=== PATIENT | male | born 1935 | race Caucasian/White ===

== ENCOUNTER → 2017-12-13 | Outpatient (CLI) | payer MEDICARE ==
[~2017-12-13] MED LIST: ASCO-504 PO; ASPI81TA94 PO; DIPH-638 PO; DOCU-416 PO; FINA5TAB67 PO; FLUT9.9S; GLUC-198 PO; HYDR-317 PO; LUTE20CA11 PO; MIRA50TA PO; NAPR220C12 PO; OMEG-11 PO; OMEP10CA40 PO; OXYB15TA17 PO; PHEN200T32 PO; PNEU0.5D3 IM; POLY17PO25 PO; SIMV-42 PO; SIMV-49 PO; SIMV-54 PO; SOLI10TA8 PO; TAMS0.4C70 PO; VITA-200 PO; VITA1CAP46 PO
[2017-12-13 10:13] LABS: PLATELET COUNT, AUTOMATED 123 K/uL (150-450)
[2017-12-13 10:36] LABS: LDL CHOLESTEROL 50 mg/dl
== END ==
LOC: LAB 09:58
PROVIDERS: ATTEND Emergency Medicine
DX: Z12.5 Encounter for screening for malignant neoplasm of prostate (principal); N40.0 Benign prostatic hyperplasia without lower urinary tract symptoms; E78.5 Hyperlipidemia, unspecified; E66.9 Obesity, unspecified; Z68.30 Body mass index [BMI] 30.0-30.9, adult
CPT/HCPCS: 36415; 85025; G0103; 82040; 82247; 82310; 82374; 82435; 82465; 82565; 82947; 83718; 84075; 84132; 84153; 84155; 84295; 84450; 84460; 84478; 84520

== ENCOUNTER → 2017-12-21 | Outpatient (CLI) | payer MEDICARE ==
[~2017-12-21] MED LIST changes: +DIPH0.5D12 IM; +NITR0.4T3 SL
== END ==
LOC: LAB 09:01
PROVIDERS: ATTEND Emergency Medicine
DX: R14.0 Abdominal distension (gaseous) (principal)
CPT/HCPCS: 87338

== ENCOUNTER → 2017-12-27 | Outpatient (CLI) | payer MEDICARE ==
[~2017-12-27] MED LIST changes: +IOPAMIDOL 76% 75 ML INFUS BTL 75 ML ONE
--- NOTE | 2017-12-27 10:18 | RADIOLOGY IMAGING REPORT ---
FACILITY: [facility] PATIENT NAME: Jostin Navarro : 1935 MR: [id number] V: [id number] EXAM DATE: ORDERING PHYSICIAN: KEITH COWART TECHNOLOGIST: Location: [facility] Patient: Jostin Navarro : 1935 Visit/Account:[id number] Date of Sevice: 12/27/2017 CT ABDOMEN WITH IV CONTRAST CLINICAL INFORMATION: Abdomen distention, gas, upper abdomen pain TECHNIQUE: Axial CT images were obtained through the abdomen during injection of nonionic iodinated intravenous contrast. Reformatted coronal and sagittal images were also obtained. Dose Lowering Tech nique One of the following dose optimization techniques was utilized in the performance of this exam: Autom ated exposure control; adjustment of the mA and/or kV according to the patient's size; or use of an i terative reconstruction technique. Specific details can be referenced in the facility's radiology C T exam operational policy. CONTRAST: 75 mL of Isovue 370 IV contrast. COMPARISON: March 18, 2015. FINDINGS: Lower lung wheeler: There Is a 2 mm subpleural nodule posterior aspect right lower lobe that has remai elena stable. Liver: No focal parenchymal abnormality of the liver. Biliary: Bilobed cyst medial segment left lobe of the liver again seen Pancreas: Pancreatic head is slightly heterogeneous although discrete mass is not seen Spleen: Normal appearance. Adrenal glands: Unremarkable. Kidneys / retroperitoneum: No evidence of nephrolithiasis or hydronephrosis Bowel / peritoneum / mesenteries: The visualized small and large bowel appear unremarkable. Lymph node assessment: No pathologic adenopathy identified. Vessels: Extensive vascular calcifications in the abdominal aorta and branch vessels atherosclerotic calcification seen throughout a nonaneurysmal abdominal aorta and branches. Musculoskeletal / Body wall: Spondylotic changes of the lumbar spine IMPRESSION: 1. Pancreatic head is slightly heterogeneous although discrete mass is not seen. If pancreatic path ology is of clinical concern MR or correlation with lab values may be helpful Additional chronic findings as described Report Dictated By: Sis Colon MD at 12/27/2017 9:11 AM Report E-Signed By: Sis Cloon MD at 12/27/2017 10:13 AM WSN:REED
== END ==
LOC: CT 02:18
PROVIDERS: ATTEND Emergency Medicine
DX: R91.8 Other nonspecific abnormal finding of lung field (principal); K76.89 Other specified diseases of liver; I25.10 Atherosclerotic heart disease of native coronary artery without angina pectoris; M47.896 Other spondylosis, lumbar region
CPT/HCPCS: 74160; Q9967

== ENCOUNTER → 2018-01-05 | Outpatient (CLI) | payer MEDICARE ==
[~2018-01-05] MED LIST changes: +GADOBENATE 529MG/1ML 15ML VIAL IVP ONE; -IOPAMIDOL 76% 75 ML INFUS BTL 75 ML ONE; +NS(*) 0.9% 10 ML VIAL 40 ML ONE
--- NOTE | 2018-01-05 08:56 | RADIOLOGY IMAGING REPORT ---
FACILITY: [facility] [place] PATIENT NAME: Jostin Navarro : 1935 MR: [id number] V: [id number] EXAM DATE: ORDERING PHYSICIAN: KEITH COWART TECHNOLOGIST: Location: [facility] [place] Patient: Jostin Navarro : 1935 Visit/Account:[id number] Date of Sevice: 01/05/2018 Exam type: ORBITS FOREIGN BODY 1 VIEW History: Pre-MRI screening Comparison: None. Findings: No radiopaque metallic foreign bodies project over the orbits. Incidentally noted are surgical clips in the right-sided the neck and moderate spondylotic changes in the visualized portion of the cervic al spine IMPRESSION: 1. No radiopaque metallic foreign bodies project over the orbits Report Dictated By: Sis Colon MD at 01/05/2018 8:50 AM Report E-Signed By: Sis Colon MD at 01/05/2018 8:51 AM WSN:REED
--- NOTE | 2018-01-05 11:38 | RADIOLOGY IMAGING REPORT ---
FACILITY[place] [facility] [place]IENT NAME: Jostin Navarro : 1935 MR: [id number] V: [id number] EXAM DATE: ORDERING PHYSICIAN: KEITH COWART TECHNOLOGIST: Location: [facility] Patient: Jostin Navarro : 1935 Visit/Account:[id number] Date of Sevice: 01/05/2018 ABDOMEN MR W W/O CONTRAST HISTORY: Heterogeneous pancreas noted on CT of the abdomen ADDITIONAL HISTORY: None. TECHNIQUE: TECHNIQUE: Multiplanar multisequence magnetic resonance imaging of the abdomen with and without intravenous contrast. CONTRAST: 15 mL of MultiHance COMPARISON: CT abdomen December 27, 2017 FINDINGS: Visualized lung bases: Grossly unremarkable. Liver: Bilobed cyst medial segment left lobe of the liver again seen. There is a tiny 5 mm cyst infe rior medial right lobe the liver as well Gallbladder: Negative. Bile ducts: Nondistended and unremarkable. Spleen: Negative. Adrenal glands: Negative. Pancreas: The pancreas enhances homogeneously. There is no evidence of a pancreatic mass or pancreat ic duct dilatation. Heterogeneous appearance to the pancreatic head on the prior CT may have been re lated to volume averaging of the adjacent peripancreatic fat.. Kidneys: Negative. Vessels/spaces/nodes: Atherosclerotic changes in the abdominal aorta and branch vessels Visualized GI: Grossly unremarkable. Bones/soft tissues: Spondylotic changes of the lumbar spine IMPRESSION: Hepatic cysts The pancreas appears homogeneous with no demonstration of a mass or pancreatic duct dilatation. Hete rogeneous appearance to the pancreatic cancer on the prior CT may have been related to volume averagi ng of the adjacent peripancreatic fat. Atherosclerosis of the abdominal aorta and branch vessels Spondylotic changes of the lumbar spine Report Dictated By: Sis Colon MD at 01/05/2018 11:16 AM Report E-Signed By: Sis Colon MD at 01/05/2018 11:33 AM WSN:REED
== END ==
LOC: MRI 01:41
PROVIDERS: ATTEND Emergency Medicine
DX: K76.89 Other specified diseases of liver (principal); I70.0 Atherosclerosis of aorta; M47.894 Other spondylosis, thoracic region
CPT/HCPCS: 70030; 74183; A9577

== ENCOUNTER 2018-04-24 13:47 | Observation (INO) | payer MEDICARE ==
[~2018-04-24] VITALS: Ht 182.9 cm; Wt 103.0 kg
[~2018-04-24 13:47] MED LIST changes: -ASCO-182 PO; -ATOR40TA24 PO; -OMEP-137 PO; -ZINC50TA43 PO
[2018-04-24] MEDS ORDERED: NS(*) 0.9% 500 ML BAG 500 ML IV ONE (13:52)
--- NOTE | 2018-04-24 13:56 | ER Report ---
History and Physical Time Seen By MD: 13:51 HPI/ROS CHIEF COMPLAINT: Chest pain HISTORY OF PRESENT ILLNESS: This is an 82-year-old male presents to the emergency department via EMS for chest pain. Patient states that he is playing golf and developed some anterior chest pain from shoulder to shoulder. Patient went home and did take 3 nitroglycerin which did seem to relieve some of the discomfort. Proximally 5-10 minutes after taking the 3rd nitroglycerin he became lightheaded and dizzy had a near syncopal episode. Patient was given 324 mg of aspirin prior to arrival. Patient arrives pain-free at this time. Patient is alert and oriented, no diaphoresis no nausea or vomiting at this time. REVIEW OF SYSTEMS: Constitutional: No fever, no chills. Eyes: No discharge. ENT: No sore throat. Cardiovascular: As above. Respiratory: No cough, no shortness of breath. Gastrointestinal: No abdominal pain, no vomiting. Genitourinary: No hematuria. Musculoskeletal: No back pain. Skin: No rashes. Neurological: As above. Allergies: Coded Allergies: No Known Allergies (Verified Allergy, Unknown, 11/19/09) Home Meds Active Scripts Nitroglycerin (NITROGLYCERIN) 0.4 Mg Tab.subl, 0.4 MG SL Q5MIN, #10 TAB Take at onset of chest pain. Can repeat every 5 mins for a total of three. Prov:KEITH COWART MD 12/20/17 Reported Medications Zinc Gluconate (ZINC) 50 Mg Tablet, 50 MG PO DAILY 04/24/18 Ascorbic Acid (VITAMIN C) 500 Mg Tablet, 500 MG PO DAILY, TAB 04/24/18 Omeprazole (OMEPRAZOLE) 20 Mg Tablet.dr, 20 MG PO QDAY, TAB 04/24/18 Atorvastatin Calcium (LIPITOR) 40 Mg Tablet, 1 TAB PO QDAY, TAB 04/24/18 Oxybutynin Chloride (DITROPAN XL) 15 Mg Tab.er.24, 1 TAB PO QDAY, TAB 12/13/16 Finasteride (FINASTERIDE) 5 Mg Tablet, 1 TAB PO QDAY 04/29/15 Polyethylene Glycol 3350 (MIRALAX) 17 Gm Powd.pack, 17 GM PO QDAY Y for CONSTIPATION 03/14/15 Glucosa Santiago 2KCL/Chondroitin Santiago (GLUCOSAMINE & CHONDROITIN CAP) 1 Each Capsule, 1 EACH PO DAILY, CAPSULE 03/14/15 Vitamin B Complex (VITAMIN B COMPLEX) 1 Each Capsule, 1 EACH PO DAILY, CAPSULE 03/14/15 Vitamin E Acetate (VITAMIN E) 400 Unit Capsule, 400 UNIT PO DAILY, CAPSULE 03/14/15 [place]-3 Fatty Acids/Fish Oil (FISH OIL 1,000 MG CAPSULE) 1 Each Capsule, 1 EACH PO BID, CAPSULE 03/14/15 Tamsulosin Hcl (TAMSULOSIN HCL) 0.4 Mg Cap.er.24h, 0.4 MG PO DAILY 03/14/15 Aspirin (ASPIRIN) 81 Mg Tab.chew, 81 MG PO QDAY, TAB.CHEW 03/14/15 Lutein (LUTEIN) 20 Mg Capsule, 20 MG PO DAILY, CAPSULE 03/14/15 Discontinued Reported Medications Omeprazole (OMEPRAZOLE) 10 Mg Capsule.dr, 10 MG PO QDAY, CAP 03/14/15 Discontinued Scripts Simvastatin (SIMVASTATIN) 40 Mg Tablet, 40 MG PO HS, #90 TAB 3 Refills Prov:KEITH COWART MD 01/07/16 Fluticasone Propionate (Flonase Allergy Relief) 9.9 Ml [place].susp, 2 EA NA PRN, #3 BOTTLE 4 Refills Prov:KEITH COWART MD 12/10/15 Pneumoc 13-Patricia Conj-Dip Crm/Pf (PREVNAR 13 SYRINGE) 0.5 Ml Disp.syrin, 0.5 ML IM ONCE, #1 SYR 0 Refills Prov:BRAYAN BERTRAND APRN MICROWAVE ENGINEER-C 04/29/15 Past Medical/Surgical History The patient has a past medical and surgical history of coronary artery disease, angiogram, irregular heartbeat, skipped heartbeats, hypercholesterolemia, history of smoking, colonoscopy, GERD, urinary frequency, incontinence, enlarged prostate, 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 Reviewed Nurses Notes: Yes Hx Smoking: Yes (SMOKED 1 PPD FOR 24 YEARS) Smoking Status: Former Smoker Exposure to Second Hand Smoke?: No Hx Alcohol Use: Yes Constitutional Vital Sign - Last 24 Hours 04/24/18 04/24/18 04/24/18 04/24/18 13:47 13:51 13:52 14:00 Temp 97.8 Pulse ??? 84 Resp 18 B/P (MAP) 101/34 101/34 (56) 112/55 (74) Pulse Ox 94 O2 Delivery Room Air 04/24/18 04/24/18 04/24/18 04/24/18 14:17 14:30 14:47 15:00 Pulse 66 60 Resp 18 18 B/P (MAP) 106/49 (68) 109/48 (68) Pulse Ox 93 92 04/24/18 04/24/18 04/24/18 04/24/18 15:17 15:30 15:30 16:00 Pulse 62 59 68 Resp 8 13 13 B/P (MAP) 114/52 (72) 114/52 (72) 99/50 (66) Pulse Ox 93 94 92 04/24/18 04/24/18 04/24/18 04/24/18 16:30 17:00 17:00 17:30 Pulse 60 60 60 59 Resp 16 13 13 7 B/P (MAP) 112/52 (72) 112/55 (74) 112/55 (74) 121/53 (75) Pulse Ox 95 92 92 93 Physical Exam General Appearance: The patient is alert, has no immediate need for airway protection and no signs of toxicity. Eyes: Pupils equal and round no pallor or injection. ENT, Mouth: Mucous membranes are moist. Respiratory: There are no retractions, lungs are clear to auscultation. Cardiovascular: Irregular rate and rhythm. No murmurs, clicks or rubs. Cardiovascular reevaluation: Converted, regular rate and rhythm. No murmurs, clicks or rubs. Gastrointestinal: Abdomen is soft and non tender, no masses, bowel sounds normal. Neurological: Alert and oriented 4. Moving all extremities. Following all commands. No focal neurologic deficits. Skin: Warm and dry, no rashes. Musculoskeletal: Neck is supple non tender. Extremities are nontender, nonswollen and have full range of motion. DIFFERENTIAL DIAGNOSIS: After history and physical exam differential diagnosis was considered for chest pain including but not limited to myocardial ischemia, pericarditis pulmonary embolus, chest wall pain, pleural inflammation and pulmonary infectious causes. Medical Decision Making Data Points Result Diagram: 04/24/18 1352 04/24/18 1352 Laboratory Hematology Test 04/24/18 13:52 7/30/18 16:28 Red Blood Count 4.74 M/uL (4.00-5.60) Mean Corpuscular Volume 92.8 fL (80.0-96.0) Mean Corpuscular Hemoglobin 32.7 pg (26.0-33.0) Mean Corpuscular Hemoglobin Concent 35.2 g/dL (32.0-36.0) Red Cell Distribution Width 14.1 % (11.5-14.5) Mean Platelet Volume 8.9 fL (7.2-11.1) Neutrophils (%) (Auto) 57.4 % (39.4-72.5) Lymphocytes (%) (Auto) 27.9 % (17.6-49.6) Monocytes (%) (Auto) 11.8 % (4.1-12.4) Eosinophils (%) (Auto) 2.2 % (0.4-6.7) Basophils (%) (Auto) 0.7 % (0.3-1.4) Nucleated RBC Relative Count (auto) 0.1 /100WBC Neutrophils # (Auto) 4.5 K/uL (2.0-7.4) Lymphocytes # (Auto) 2.2 K/uL (1.3-3.6) Monocytes # (Auto) 0.9 K/uL (0.3-1.0) Eosinophils # (Auto) 0.2 K/uL (0.0-0.5) Basophils # (Auto) 0.1 K/uL (0.0-0.1) Nucleated RBC Absolute Count (auto) 0.00 K/uL D-Dimer Quantitative (PE/DVT) 0.34 ug/ml (0-0.50) Sodium Level 142 mmol/L (137-145) Potassium Level 3.9 mmol/L (3.5-5.0) Chloride Level 104 mmol/L (98-107) Carbon Dioxide Level 27 mmol/L (22-30) Blood Urea Nitrogen 17 mg/dl (9-21) Creatinine 0.90 mg/dl (0.66-1.25) Glomerular Filtration Rate Calc > 60.0 Random Glucose 127 mg/dl (75-110) Calcium Level 9.3 mg/dl (8.4-10.2) Magnesium Level 2.1 mg/dl (1.7-2.2) Total Bilirubin 0.7 mg/dl (0.2-1.3) Aspartate Amino Transf (AST/SGOT) 27 U/L (0-35) Alanine Aminotransferase (ALT/SGPT) 32 U/L (0-56) Alkaline Phosphatase 80 U/L (0-126) Total Protein 7.2 g/dl (6.3-8.2) Albumin 4.3 g/dl (3.5-5.0) Troponin I < 0.012 ng/ml Chemistry Test 04/24/18 13:52 04/24/18 16:28 White Blood Count 7.8 k/uL (4.5-11.0) Red Blood Count 4.74 M/uL (4.00-5.60) Hemoglobin 15.5 g/dL (14.0-18.0) Hematocrit 44.0 % (42.0-52.0) Mean Corpuscular Volume 92.8 fL (80.0-96.0) Mean Corpuscular Hemoglobin 32.7 pg (26.0-33.0) Mean Corpuscular Hemoglobin Concent 35.2 g/dL (32.0-36.0) Red Cell Distribution Width 14.1 % (11.5-14.5) Platelet Count 126 K/uL (150-450) Mean Platelet Volume 8.9 fL (7.2-11.1) Neutrophils (%) (Auto) 57.4 % (39.4-72.5) Lymphocytes (%) (Auto) 27.9 % (17.6-49.6) Monocytes (%) (Auto) 11.8 % (4.1-12.4) Eosinophils (%) (Auto) 2.2 % (0.4-6.7) Basophils (%) (Auto) 0.7 % (0.3-1.4) Nucleated RBC Relative Count (auto) 0.1 /100WBC Neutrophils # (Auto) 4.5 K/uL (2.0-7.4) Lymphocytes # (Auto) 2.2 K/uL (1.3-3.6) Monocytes # (Auto) 0.9 K/uL (0.3-1.0) Eosinophils # (Auto) 0.2 K/uL (0.0-0.5) Basophils # (Auto) 0.1 K/uL (0.0-0.1) Nucleated RBC Absolute Count (auto) 0.00 K/uL D-Dimer Quantitative (PE/DVT) 0.34 ug/ml (0-0.50) Glomerular Filtration Rate Calc > 60.0 Calcium Level 9.3 mg/dl (8.4-10.2) Magnesium Level 2.1 mg/dl (1.7-2.2) Total Bilirubin 0.7 mg/dl (0.2-1.3) Aspartate Amino Transf (AST/SGOT) 27 U/L (0-35) Alanine Aminotransferase (ALT/SGPT) 32 U/L (0-56) Alkaline Phosphatase 80 U/L (0-126) Total Protein 7.2 g/dl (6.3-8.2) Albumin 4.3 g/dl (3.5-5.0) Troponin I < 0.012 ng/ml Coagulation Test 04/24/18 13:52 D-Dimer Quantitative (PE/DVT) 0.34 ug/ml EKG/Imaging EKG Interpretation 12 lead EKG: Time of EKG 1354. Rhythm: Atrial fibrillation, rate of 82 bpm. [place] Heart: normal QRS: normal ST segments: Slight depression in V2 V3 and V4 V5 V6, similar to the previous stress test. 12 lead EKG: Repeat EKG 1418. Rhythm: Normal sinus rhythm, ventricular rate 77 bpm. [place] Heart: normal QRS: normal ST segments: No ST depression or elevation identified, improvement of the depression in leads V2, V3, V4, V5 and V6. Imaging Location: [facility] [place] Patient: Jostin Navarro : 1935 Visit/Account:[id number] Date of Sevice: 04/24/2018 EXAMINATION: Chest radiographs 2 views HISTORY: Chest pain. COMPARISON: 03/17/2015. FINDINGS: PA and lateral views of the chest are submitted. Lines/tubes: None. Lungs/pleura: No focal consolidation or pleural effusion. Heart: Negative. Mediastinum: Atherosclerotic calcifications of the aorta. Bony structures/body wall: Mild degenerative changes of the thoracic spine with small bridging anterior osteophytes. IMPRESSION: No radiographic evidence of acute cardiopulmonary disease. Report Dictated By: Ness Salazar MD at 04/24/2018 3:34 PM Report E-Signed By: Ness Salazar MD at 04/24/2018 3:35 PM WSN:[id number] ED Course/Re-evaluation Clinical Indication for ER IV: Hydration, IV Access ED Course The patient was admitted to room. A history of physical were obtained. Differential diagnoses were considered. An IV was started via EMS. A CBC, CMP, troponin and d-dimer were obtained. Lab studies unremarkable. Negative troponin , negative d-dimer. 1st EKG upon arrival showing atrial fibrillation with a rate of [address] depression in V2, V3, V4, V5 and minimally and V6. Proximal 2020 minutes later I noted that the patient's rhythm changed repeat EKG showing a normal sinus rhythm, ventricular rate [address] depression in the the leads no longer present. Repeat troponin was negative. Two-view chest x-ray was negative for any acute cardiopulmonary process. I did review these results with the patient and the family. With the near syncopal episode that the patient had , which was likely from the nitroglycerin, the chest pain and the new onset A. fib we discussed the possibility of an admission to the hospital. With the concern of recurrent chest pain and recurrent atrial fibrillation, the patient and family were agreeable to admission to the hospital. Dr. Early has agreed to admit the patient for observation to the medical surgical unit. At the time of admission the patient had no other questions or concerns, and no sinus rhythm and pain-free. 04/24/2018 3:12:39 pm I did review the laboratory studies with patient and his . Did tell him that the only thing waiting on now is the chest x-ray. Patient remains pain-free, no lightheadedness or dizziness, remains in a normal sinus rhythm with a rate of 60 bpm. 04/24/2018 4:23:09 pm I did review the negative chest x-ray with patient and his family. I did tell them that I do like to repeat the troponin and then talk to the hospitalist regarding his case. Patient and family are in agreement with this. Patient remains in a normal sinus rhythm. He remains pain-free. 04/24/2018 5:36:51 pm the repeat troponin was negative. I did speak with Dr. Early regarding the patient's case he is willing to admit the patient into the hospitalist services. I discussed this with the patient and the family and the patient is willing to come in for new onset atrial fibrillation and chest pain. Decision to Disposition Date: Apr 24, 2018 Decision to Disposition Time: 17:36 Depart Departure Latest Vital Signs Vital Signs Date Time Temp Pulse Resp B/P (MAP) Pulse Ox O2 Delivery O2 Flow Rate FiO2 04/24/18 17:30 59 7 121/53 (75) 93 04/24/18 13:51 97.8 Room Air Impression: Primary Impression: Atrial fibrillation Additional Impressions: Chest pain Near syncope Condition: Improved Disposition: Admitted from ER Referrals: KEITH COWART MD (PCP) Problem Qualifiers Primary Impression: Atrial fibrillation Atrial fibrillation type: unspecified Qualified Codes: I48.91 - Unspecified atrial fibrillation Additional Impressions: Chest pain Chest pain type: unspecified Qualified Codes: R07.9 - Chest pain, unspecified ELVIRA ACKERMAN MICROWAVE ENGINEER- Apr 24, 2018 13:56
[2018-04-24 14:00] LABS: PLATELET COUNT, AUTOMATED 126 K/uL (150-450)
--- NOTE | 2018-04-24 14:27 | EKG ---
FACILITY: [facility] PATIENT NAME: KURT ZAVALA : [id number] MR: [id number] V: [id number] EXAM DATE: ORDERING PHYSICIAN: ELVIRA ACKERMAN TECHNOLOGIST: LAQUITA Test Reason : REPEAT EKG Blood Pressure : / mmHG Vent. Rate : 077 BPM Atrial Rate : 077 BPM P-R Int : 184 ms QRS Dur : 094 ms QT Int : 414 ms P-R-T Axes : 049 037 025 degrees QTc Int : 468 ms Normal sinus rhythm Low voltage QRS RSR' or QR pattern in V1 suggests right ventricular conduction delay Nonspecific ST and T wave abnormality Prolonged QT Abnormal ECG When compared with ECG of 24-APR-2018 13:54, Sinus rhythm has replaced Atrial fibrillation Nonspecific T wave abnormality now evident in Anterior leads Confirmed by MILAGROS BALDERAS ([id number]) on 04/24/2018 5:32:15 PM Referred By: VANDANA Confirmed By:MILAGROS BALDERAS
--- NOTE | 2018-04-24 14:30 | EKG ---
FACILITY: [facility] PATIENT NAME: KURT ZAVALA : [id number] MR: [id number] V: [id number] EXAM DATE: ORDERING PHYSICIAN: ELVIRA ACKERMAN TECHNOLOGIST: DIEUDONNE Test Reason : ER Blood Pressure : / mmHG Vent. Rate : 082 BPM Atrial Rate : 326 BPM P-R Int : 000 ms QRS Dur : 090 ms QT Int : 380 ms P-R-T Axes : 000 045 014 degrees QTc Int : 443 ms Atrial fibrillation Low voltage QRS RSR' or QR pattern in V1 suggests right ventricular conduction delay ST abnormality, possible digitalis effect Abnormal ECG No previous ECGs available Confirmed by MILAGROS BALDERAS ([id number]) on 04/24/2018 5:32:04 PM Referred By: Confirmed By:MILAGROS BALDERAS
--- NOTE | 2018-04-24 15:40 | RADIOLOGY IMAGING REPORT ---
FACILITY: [facility] [place] PATIENT NAME: Jostin Navarro : 1935 MR: [id number] V: [id number] EXAM DATE: ORDERING PHYSICIAN: ELVIRA ACKERMAN TECHNOLOGIST: Location: [facility] Patient: Jostin Navarro : 1935 Visit/Account:[id number] Date of Sevice: 04/24/2018 EXAMINATION: Chest radiographs 2 views HISTORY: Chest pain. COMPARISON: 03/17/2015. FINDINGS: PA and lateral views of the chest are submitted. Lines/tubes: None. Lungs/pleura: No focal consolidation or pleural effusion. Heart: Negative. Mediastinum: Atherosclerotic calcifications of the aorta. Bony structures/body wall: Mild degenerative changes of the thoracic spine with small bridging anter ior osteophytes. IMPRESSION: No radiographic evidence of acute cardiopulmonary disease. Report Dictated By: Ness Salazar MD at 04/24/2018 3:34 PM Report E-Signed By: Ness Salazar MD at 04/24/2018 3:35 PM WSN:[id number]
[2018-04-24 18:26] VITALS: BP 152/69
[2018-04-24] MEDS ORDERED: OMEP-137 PO (18:43)
[2018-04-24] MEDS ORDERED: ZINC50TA43 PO (18:43)
[2018-04-24] MEDS ORDERED: ASCO-182 PO (18:43)
[2018-04-24] MEDS ORDERED: ATOR40TA24 PO (18:43)
[2018-04-24] MEDS ORDERED: INFLUENZA VIRUS VAC 0.5 ML SYR IM ONLY ONE (18:55)
--- NOTE | 2018-04-24 19:09 | History & Physical ---
History of Present Illness Chief Complaint Chest pain History of Present Illness This patient presented to the emergency room complaining of chest pain. He developed chest pressure while playing golf, but it was not enough to force him to stop playing. He finished golfing and went to lunch and continued to feel the pressure. He then decided to take 3 doses of nitroglycerin to see if it would help. Shortly thereafter he suffered a syncopal episode. His noted that his blood pressure was in the 80 systolic range after this event. He does not recall that a similar episode has ever occurred in the past. History Problems: (1) H/O carotid endarterectomy (2) History of coronary angiogram (3) Nephrolithiasis Status: Chronic (4) Peripheral vascular disease Status: Chronic (5) BPH (benign prostatic hyperplasia) Status: Chronic (6) Hyperlipidemia Onset Date: 04/29/2015 Status: Chronic Home Meds Active Scripts Nitroglycerin (NITROGLYCERIN) 0.4 Mg Tab.subl, 0.4 MG SL Q5MIN, #10 TAB Take at onset of chest pain. Can repeat every 5 mins for a total of three. Prov:KEITH COWART MD 12/20/17 Reported Medications Zinc Gluconate (ZINC) 50 Mg Tablet, 50 MG PO DAILY 04/24/18 Ascorbic Acid (VITAMIN C) 500 Mg Tablet, 500 MG PO DAILY, TAB 04/24/18 Omeprazole (OMEPRAZOLE) 20 Mg Tablet.dr, 20 MG PO QDAY, TAB 04/24/18 Atorvastatin Calcium (LIPITOR) 40 Mg Tablet, 1 TAB PO QDAY, TAB 04/24/18 Oxybutynin Chloride (DITROPAN XL) 15 Mg Tab.er.24, 1 TAB PO QDAY, TAB 12/13/16 Finasteride (FINASTERIDE) 5 Mg Tablet, 1 TAB PO QDAY 04/29/15 Polyethylene Glycol 3350 (MIRALAX) 17 Gm Powd.pack, 17 GM PO QDAY Y for CONSTIPATION 03/14/15 Glucosa Santiago 2KCL/Chondroitin Santiago (GLUCOSAMINE & CHONDROITIN CAP) 1 Each Capsule, 1 EACH PO DAILY, CAPSULE 03/14/15 Vitamin B Complex (VITAMIN B COMPLEX) 1 Each Capsule, 1 EACH PO DAILY, CAPSULE 03/14/15 Vitamin E Acetate (VITAMIN E) 400 Unit Capsule, 400 UNIT PO DAILY, CAPSULE 03/14/15 [place]-3 Fatty Acids/Fish Oil (FISH OIL 1,000 MG CAPSULE) 1 Each Capsule, 1 EACH PO BID, CAPSULE 03/14/15 Tamsulosin Hcl (TAMSULOSIN HCL) 0.4 Mg Cap.er.24h, 0.4 MG PO DAILY 03/14/15 Aspirin (ASPIRIN) 81 Mg Tab.chew, 81 MG PO QDAY, TAB.CHEW 03/14/15 Lutein (LUTEIN) 20 Mg Capsule, 20 MG PO DAILY, CAPSULE 03/14/15 Discontinued Reported Medications Omeprazole (OMEPRAZOLE) 10 Mg Capsule.dr, 10 MG PO QDAY, CAP 03/14/15 Discontinued Scripts Simvastatin (SIMVASTATIN) 40 Mg Tablet, 40 MG PO HS, #90 TAB 3 Refills Prov:KEITH COWART MD 01/07/16 Fluticasone Propionate (Flonase Allergy Relief) 9.9 Ml [place].susp, 2 EA NA PRN, #3 BOTTLE 4 Refills Prov:KEITH COWART MD 12/10/15 Pneumoc 13-Patricia Conj-Dip Crm/Pf (PREVNAR 13 SYRINGE) 0.5 Ml Disp.syrin, 0.5 ML IM ONCE, #1 SYR 0 Refills Prov:BRAYAN BERTRAND APRN VIOLIN TUTOR-C 04/29/15 Allergies: Coded Allergies: No Known Allergies (Verified Allergy, Unknown, 11/19/09) Patient History: FH: diabetes mellitus MOTHER, , Age:82 FH: lung cancer brother (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 OCCASIONAL SODA Hx Alcohol Use: Yes Hx Substance Use Disorder: No Social Drug Use: Never Review of Systems All Systems Reviewed/Normal: Yes, Except as Noted Neurological: Syncope Exam Vital Signs Vital Signs Date Time Temp Pulse Resp B/P (MAP) Pulse Ox O2 Delivery O2 Flow Rate FiO2 04/24/18 18:29 95 04/24/18 18:26 97.5 66 18 152/69 (96) Room Air Eyes: PERRLA Cardiovascular: Regular Rate and Rhythm Respiratory: Clear to Auscultation GI: Abd Soft and Non-Tender Extremities: No Edema Integumentary: No Cyanosis Medical Decision Making Data Points Result Diagram: 04/24/18 1352 04/24/18 1352 Item Value Date Time Troponin I < 0.012 ng/ml 04/24/18 1352 Troponin I < 0.012 ng/ml 04/24/18 1628 EKG / Imaging EKG Interpretation EKG reviewed Assessment and Plan Problems: (1) Atrial fibrillation Status: Acute Assessment & Plan: He did present with chest pain and was found to be in atrial fibrillation with a controlled ventricular rate on arrival to the emergency room. He spontaneously converted back to sinus rhythm in the emergency room and is no longer experiencing any symptoms. His troponin series was negative and his repeat EKG shows sinus rhythm with nonspecific changes. He is already on aspirin therapy. We will defer more aggressive anticoagulation unless he has a recurrent episode of A-fib. An echocardiogram and TSH have been ordered. (2) Syncope Assessment & Plan: He did suffer a syncopal episode after taking the 3 doses of nitroglycerin. This was likely secondary to the nitroglycerin as his noted hypotension in the field and he remained so on arrival to the emergency room. He has had several negative stress tests and reports a negative angiogram in the last several years. He is advised not to take nitroglycerin unless prescribed for different reasons in the future. (3) Peripheral vascular disease Status: Chronic Assessment & Plan: He is on chronic treatment with aspirin. (4) Hyperlipidemia Onset Date: 04/29/2015 Status: Chronic Assessment & Plan: He is on chronic treatment with atorvastatin. (5) BPH (benign prostatic hyperplasia) Status: Chronic Assessment & Plan: He is on chronic treatment with finasteride, oxybutynin, and tamsulosin. (6) Obesity (BMI 30.0-34.9) Status: Chronic Copies to: KEITH COWART MD Venous Thromboembolism Antithrombotics Is Pt On Any Antithrombotics?: No Exam Sepsis Risk: No Definite Risk Problem Qualifiers (1) Atrial fibrillation: Atrial fibrillation type: unspecified Qualified Codes: I48.91 - Unspecified atrial fibrillation MILAGROS BALDERAS DO Apr 24, 2018 19:09
[2018-04-24 20:16] VITALS: BP 142/57
[2018-04-24 22:51] VITALS: BP 141/76
[2018-04-25 03:26] VITALS: BP 138/95
[2018-04-25 07:38] VITALS: BP 132/92
[2018-04-25] MEDS ORDERED: ASPIRIN 81 MG CHEW PO SCH (09:00)
[2018-04-25] MEDS ORDERED: FINASTERIDE 5 MG TAB PO SCH (09:00)
[2018-04-25] MEDS ORDERED: ATORVASTATIN 40 MG TAB PO SCH (09:00)
[2018-04-25] MEDS ORDERED: TAMSULOSIN HCL 0.4 MG CAP PO SCH (09:00)
[2018-04-25] MEDS ORDERED: OXYBUTYNIN CHL XL 5 MG TABCR PO SCH (09:00)
[2018-04-25] MEDS ORDERED: PANTOPRAZOLE SOD 20 MG TABEC PO SCH (09:00)
--- NOTE | 2018-04-25 11:03 | Hospitalist Depart ---
Discharge Summary Reason for Hosp/Final Diag: (1) Atrial fibrillation Status: Acute Hospital Course & Plan: He did present with chest pain and was found to be in atrial fibrillation with a controlled ventricular rate on arrival to the emergency room. He spontaneously converted back to sinus rhythm in the emergency room and is no longer experiencing any symptoms. His troponin series was negative and his repeat EKG shows sinus rhythm with nonspecific changes. He is already on aspirin therapy. We will defer more aggressive anticoagulation unless he has a recurrent episode of A-fib, ordered 48 hour halter to monitor for afib as he goes about his normal activities. An echocardiogram and TSH are pending at d/c. Suspect the drop in BP from the nitro caused an episode a-fib, discussed with patient who was amenable to no anticoagulation at this time and proceed with outpt halter monitor. (2) Syncope Hospital Course & Plan: He did suffer a syncopal episode after taking the 3 doses of nitroglycerin. This was likely secondary to the nitroglycerin as his noted hypotension in the field and he remained so on arrival to the emergency room. He has had several negative stress tests and reports a negative angiogram in the last several years. He is advised not to take nitroglycerin unless prescribed for different reasons in the future. (3) Peripheral vascular disease Status: Chronic Hospital Course & Plan: He is on chronic treatment with aspirin. (4) Hyperlipidemia Onset Date: 04/29/2015 Status: Chronic Hospital Course & Plan: He is on chronic treatment with atorvastatin. (5) BPH (benign prostatic hyperplasia) Status: Chronic Hospital Course & Plan: He is on chronic treatment with finasteride, oxybutynin , and tamsulosin. (6) Obesity (BMI 30.0-34.9) Status: Chronic Departure Weight (Pounds): 227 Weight (Ounces): 1.0 Result Diagram: 04/24/18 1352 04/24/18 1352 Condition: Improved Discharge: Home Discharge Instructions Home Meds Active Scripts Nitroglycerin (NITROGLYCERIN) 0.4 Mg Tab.subl, 0.4 MG SL Q5MIN, #10 TAB Take at onset of chest pain. Can repeat every 5 mins for a total of three. Prov:KEITH COWART MD 12/20/17 Reported Medications Zinc Gluconate (ZINC) 50 Mg Tablet, 50 MG PO DAILY 7/30/18 Ascorbic Acid (VITAMIN C) 500 Mg Tablet, 500 MG PO DAILY, TAB 04/24/18 Omeprazole (OMEPRAZOLE) 20 Mg Tablet.dr, 20 MG PO QDAY, TAB 04/24/18 Atorvastatin Calcium (LIPITOR) 40 Mg Tablet, 1 TAB PO QDAY, TAB 04/24/18 Oxybutynin Chloride (DITROPAN XL) 15 Mg Tab.er.24, 1 TAB PO QDAY, TAB 12/13/16 Finasteride (FINASTERIDE) 5 Mg Tablet, 1 TAB PO QDAY 04/29/15 Polyethylene Glycol 3350 (MIRALAX) 17 Gm Powd.pack, 17 GM PO QDAY Y for CONSTIPATION 03/14/15 Glucosa Santiago 2KCL/Chondroitin Santiago (GLUCOSAMINE & CHONDROITIN CAP) 1 Each Capsule, 1 EACH PO DAILY, CAPSULE 03/14/15 Vitamin B Complex (VITAMIN B COMPLEX) 1 Each Capsule, 1 EACH PO DAILY, CAPSULE 03/14/15 Vitamin E Acetate (VITAMIN E) 400 Unit Capsule, 400 UNIT PO DAILY, CAPSULE 03/14/15 [place]-3 Fatty Acids/Fish Oil (FISH OIL 1,000 MG CAPSULE) 1 Each Capsule, 1 EACH PO BID, CAPSULE 03/14/15 Tamsulosin Hcl (TAMSULOSIN HCL) 0.4 Mg Cap.er.24h, 0.4 MG PO DAILY 03/14/15 Aspirin (ASPIRIN) 81 Mg Tab.chew, 81 MG PO QDAY, TAB.CHEW 03/14/15 Lutein (LUTEIN) 20 Mg Capsule, 20 MG PO DAILY, CAPSULE 03/14/15 Discontinued Reported Medications Omeprazole (OMEPRAZOLE) 10 Mg Capsule.dr, 10 MG PO QDAY, CAP 03/14/15 Discontinued Scripts Simvastatin (SIMVASTATIN) 40 Mg Tablet, 40 MG PO HS, #90 TAB 3 Refills Prov:KEITH COWART MD 01/07/16 Fluticasone Propionate (Flonase Allergy Relief) 9.9 Ml [place].susp, 2 EA NA PRN, #3 BOTTLE 4 Refills Prov:KEITH COWART MD 12/10/15 Pneumoc 13-Patricia Conj-Dip Crm/Pf (PREVNAR 13 SYRINGE) 0.5 Ml Disp.syrin, 0.5 ML IM ONCE, #1 SYR 0 Refills Prov:BRAYAN BERTRAND APRN CHIEF CREATIVE OFFICER-C 04/29/15 Diet: Regular Activity: As Tolerated Copies to: KEITH COWART MD Venous Thromboembolism Antithrombotics Is Pt On Any Antithrombotics?: No Problem Qualifiers (1) Atrial fibrillation: Atrial fibrillation type: unspecified Qualified Codes: I48.91 - Unspecified atrial fibrillation JATIN LINDA DO Apr 25, 2018 11:03
== END 2018-04-25 10:53 | disposition home or self-care (01) ==
LOC: ER 13:55 → MED 17:54 → INTOOBSV 17:54
PROVIDERS: ADMIT Family Medicine; ATTEND Family Medicine
DX: I48.91 Unspecified atrial fibrillation (principal); R07.89 Other chest pain; R55 Syncope and collapse; I73.9 Peripheral vascular disease, unspecified; E78.5 Hyperlipidemia, unspecified; N40.0 Benign prostatic hyperplasia without lower urinary tract symptoms; E66.9 Obesity, unspecified
CPT/HCPCS: 36415; 71046; 83735; 84443; 84484; 85025; 85379; 93005; 93225; 93306; 96360; 96361; 99284; A9270; G0378; J7040; 82040; 82247; 82310; 82374; 82435; 82565; 82947; 84075; 84132; 84155; 84295; 84450; 84460; 84520

== ENCOUNTER → 2018-04-24 | Outpatient (CLI) | payer MEDICARE ==
[~2018-04-24] MED LIST changes: +ASCO-182 PO; +ATOR40TA24 PO; -GADOBENATE 529MG/1ML 15ML VIAL IVP ONE; -NS(*) 0.9% 10 ML VIAL 40 ML ONE; +OMEP-137 PO; +ZINC50TA43 PO
== END ==
LOC: AMB 13:28
PROVIDERS: ATTEND Nurse Practitioner
DX: R07.9 Chest pain, unspecified (principal)
CPT/HCPCS: A0425; A0427

== ENCOUNTER → 2018-06-10 | Outpatient (CLI) | payer MEDICARE ==
[~2018-06-10] MED LIST changes: +ASCO-182 PO; +ATOR40TA24 PO; +OMEP-137 PO; +ZINC50TA43 PO
== END ==
LOC: RESP 20:54
PROVIDERS: ATTEND Emergency Medicine
DX: G47.33 Obstructive sleep apnea (adult) (pediatric) (principal); G47.61 Periodic limb movement disorder; G47.36 Sleep related hypoventilation in conditions classified elsewhere

== ENCOUNTER → 2018-07-05 | Outpatient (CLI) | payer MEDICARE | LOC: RESP 19:44 | PROVIDERS: ATTEND Emergency Medicine | DX: G47.33 Obstructive sleep apnea (adult) (pediatric) (principal); G47.36 Sleep related hypoventilation in conditions classified elsewhere ==

== ENCOUNTER → 2018-08-01 | Outpatient (CLI) | payer MEDICARE ==
[2018-08-01 11:47] LABS: LDL CHOLESTEROL 62 mg/dl
== END ==
LOC: LAB 10:50
PROVIDERS: ATTEND Internal Medicine Cardiovascular Disease
DX: I65.23 Occlusion and stenosis of bilateral carotid arteries (principal); E78.00 Pure hypercholesterolemia, unspecified
CPT/HCPCS: 36415; 82310; 82374; 82435; 82465; 82565; 82947; 83718; 84132; 84295; 84478; 84520

== ENCOUNTER → 2018-08-03 | Outpatient (CLI) | payer MEDICARE ==
--- NOTE | 2018-08-03 18:01 | RADIOLOGY IMAGING REPORT ---
FACILITY: [facility] PATIENT NAME: Jostin Navarro : 1935 MR: [id number] V: [id number] EXAM DATE: ORDERING PHYSICIAN: HIRA VALENCIA TECHNOLOGIST: Location: [facility] [place] Patient: Jostin Navarro : 1935 Visit/Account:[id number] Date of Sevice: 08/03/2018 CAROTID Provided History: History of right endarterectomy. History of bilateral stenosis. Additional History: None Comparison: Comparison made to a report from a CT angiogram of the neck which discusses diffuse ganesh rial (without significant stenosis. I am unable to review the images. Findings: Findings: A color flow Doppler duplex ultrasound scan was performed on the carotid and vert ebral arteries bilaterally. Measurement of carotid stenosis is based on velocity parameters that cor relate the residual internal carotid diameter with [place] Symptomatic Carotid Endarterectomy Trial (NASCET)- based stenosis levels. Real-time grayscale, color flow and Doppler sonography of the cervical carotid and vertebral arteries is performed. Stenosis % is determined from velocity criteria extrapolated from diameter data as defined by the Soc iety of Radiologists in Ultrasound Consensus Conference Radiology 2003; 229;340-346. Right carotid peak systolic velocities are as follows: Superior right ICA - 187 cm/sec. Mid right ICA - 170 cm/sec. Proximal right ICA - 122 cm/sec. Right carotid bulb - 111 cm/sec. Superior right CCA - 129 cm/sec. Mid right CCA- 93 cm/sec. Inferior right CCA- 96 cm/sec. Proximal right ECA- 98 cm/sec. Mid right vertebral- 64 cm/sec. Antegrade flow Right ICA/CCA ratio- 2.0 ( normal < 2.0 ). There is mild diffuse atherosclerotic plaque seen in the carotid bulb and internal carotid artery Left carotid peak systolic velocities are as follows: Superior left ICA - 115 cm/sec. Mid left ICA- 93 cm/sec. Proximal left ICA- 120 cm/sec. Left carotid bulb- 99 cm/sec. Superior left CCA- 109 cm/sec. Mid left CCA- 114 cm/sec. Inferior left CCA- 137 cm/sec. Proximal left ECA- 119 cm/sec. Mid left vertebral- 46 cm/sec. antegrade flow Left ICA/CCA ratio- 1.1 ( normal < 2.0). mild diffuse atherosclerotic plaque seen in the carotid bulb and internal carotid artery . IMPRESSION: Elevated Velocity measurements in the right internal carotid artery correspond to 50-69% stenosis. However, discrete stenotic plaque not appreciated. Calcific plaque better demonstrated in the left ICA although velocity measurements correspond to less than 50% stenosis Report Dictated By: Kirk Cox MD at 08/03/2018 5:49 PM Report E-Signed By: Kirk Cox MD at 08/03/2018 5:58 PM WSN:[id number]
== END ==
LOC: US 00:39
PROVIDERS: ATTEND Internal Medicine Cardiovascular Disease
DX: I65.23 Occlusion and stenosis of bilateral carotid arteries (principal)
CPT/HCPCS: 93880

== ENCOUNTER → 2018-12-26 | Outpatient (CLI) | payer MEDICARE ==
[2018-12-26 08:54] LABS: PLATELET COUNT, AUTOMATED 113 K/uL (150-450)
[2018-12-26 09:30] LABS: LDL CHOLESTEROL 44 mg/dl
== END ==
LOC: LAB 08:34
PROVIDERS: ATTEND Emergency Medicine
DX: Z00.00 Encounter for general adult medical examination without abnormal findings (principal); E78.5 Hyperlipidemia, unspecified; K21.9 Gastro-esophageal reflux disease without esophagitis; I48.91 Unspecified atrial fibrillation
CPT/HCPCS: 36415; 82040; 82247; 82310; 82374; 82435; 82465; 82565; 82947; 83718; 84075; 84132; 84155; 84295; 84450; 84460; 84478; 84520; 85025

== ENCOUNTER → 2018-12-28 | Outpatient (CLI) | payer MEDICARE | LOC: LAB 15:31 | PROVIDERS: ATTEND Emergency Medicine | DX: D69.6 Thrombocytopenia, unspecified (principal) | CPT/HCPCS: 36415; 82525; 82746 ==

== ENCOUNTER → 2019-03-01 | Outpatient (CLI) | payer MEDICARE ==
[~2019-03-01] MED LIST changes: -DIPH0.5D12 IM; +DIPH0.5S2 IM; -OMEP10CA40 PO; +OMEP10CA41 PO
== END ==
LOC: LAB 12:44
PROVIDERS: ATTEND Urology
DX: Z12.5 Encounter for screening for malignant neoplasm of prostate (principal); N40.1 Benign prostatic hyperplasia with lower urinary tract symptoms
CPT/HCPCS: 36415; G0103; 84153

== ENCOUNTER → 2019-04-09 | Outpatient (CLI) | payer MEDICARE | LOC: LAB 11:20 | PROVIDERS: ATTEND Emergency Medicine | DX: N20.0 Calculus of kidney (principal) | CPT/HCPCS: 36415; 82310; 82374; 82435; 82565; 82947; 84132; 84295; 84520 ==

== ENCOUNTER 2019-05-03 01:20 | Day surgery (SDC) | payer MEDICARE ==
[2019-05-01 16:01] LABS: PLATELET COUNT, AUTOMATED 140 K/uL (150-450)
[2019-05-01 16:10] LABS: INR 1.02
--- NOTE | 2019-05-01 20:00 | HISTORY AND PHYSICAL ---
DATE OF ADMISSION: May 03, 2019 CHIEF COMPLAINT BPH with lower urinary tract symptoms of urgency, frequency, and decreased force of stream. HISTORY OF PRESENT ILLNESS Patient is an 83-year-old white male with a history of BPH symptoms for the past several years, who has been on Flomax since 2014 along with Myrbetriq. Proscar was added in mid 2014 with some improvement in his symptoms. The patient underwent urodynamics evaluation back in 2014, which did show a decreased bladder capacity of approximately 250 mL with some uninhibited contractions at this volume. His pressure flow rate was not interpreted secondary to movement of the pressure sensory; however, he did have a decreased force of stream and has had noninvasive flow rates at the 12 to 13 mL per second range. His postvoid residuals have been approximately 50 to 75 mL. Options were discussed with the patient including standard transurethral resection of the prostate or photovaporization versus a minimally invasive procedure like UroLift. The patient expressed interest in the UroLift procedure given its minimally invasive nature and desired workup. A transrectal ultrasound was performed, which showed a 28 cc volume prostate, which was 46 mm wide. He had a flexible cystoscopy performed as well, which revealed a 2+ trabeculated bladder. He had no median lobe or significant elevation in his bladder neck area. He had approximately a 350 mL volume by cystoscopic exam. PAST MEDICAL HISTORY 1. Coronary artery disease. 2. Hard of hearing. 3. Hypercholesterolemia. 4. Hypertension. 5. History of AFib. 6. Obstructive sleep apnea. 7. Gastroesophageal reflux disease. 8. Kidney stones. 9. BPH as per HPI. 10. Degenerative joint disease, back and hips. 11. Mild thrombocytopenia. PAST SURGICAL HISTORY 1. Bilateral cataracts. 2. Tonsillectomy. 3. Coronary angiogram. 4. Right carotid endarterectomy. 5. Colonoscopy. 6. ESWL. 7. Right total hip replacement. 8. Skin cancer excision. 9. Bilateral vasectomy. SOCIAL HISTORY Patient has a remote history of smoking. He is and lives in [place], [place]. ALLERGIES No known drug allergies. CURRENT MEDICATIONS 1. Multivitamins. 2. Lipitor. 3. Finasteride. 4. Omeprazole. 5. Ditropan XL. 6. MiraLAX. 7. Flomax. 8. Zinc tablets. REVIEW OF SYSTEMS Patient denies chest pain, shortness of breath, nausea, vomiting, fever, chills, productive cough, bleeding disorder, or chronic headaches. PHYSICAL EXAMINATION GENERAL: Patient is a well-developed, well-nourished white male in no acute distress. HEENT: Normocephalic, atraumatic. CHEST: Clear to auscultation bilaterally. CARDIOVASCULAR: Regular rate and rhythm. ABDOMEN: Soft, nontender. No masses are palpated. GENITOURINARY: Deferred to the OR. EXTREMITIES: Without clubbing, cyanosis, or edema. NEUROLOGIC: Nonfocal. IMPRESSION An 83-year-old white male with a long history of benign prostatic hypertrophy symptoms with primary urgency and frequency with decreased force of stream. He is on maximum medical therapy with Flomax, Proscar, and Ditropan XL. His urodynamics did reveal decreased bladder capacity with some uninhibited contractions. Flow rate was equivocal. The patient is interested in a minimally invasive procedure to see if his symptoms can be improved while on medicines or even the possibility to stop his medications. Given the fact of his urodynamic tests showing decreased capacity, he may already have some irreversible bladder dysfunction which may not significantly improve after UroLift or even transurethral resection of the prostate. Patient understands this and has been given approximately 50% chance of significant improvement after UroLift procedure. PLAN Will perform anesthetic cystoscopy, followed by UroLift implants. TUCKER
[~2019-05-03] VITALS: Ht 185.4 cm; Wt 99.8 kg
[2019-05-03] MEDS ORDERED: DEXAMETHASONE SOD PHOS 10MG/ML ONE (12:18)
[2019-05-03] MEDS ORDERED: ONDANSETRON 4 MG/2 ML VIAL ONE (12:18)
[2019-05-03] MEDS ORDERED: PROPOFOL EMUL(*) 10MG/ML 20 ML 20 ML ONE (12:18)
[2019-05-03 12:26] VITALS: BP 148/58
[2019-05-03] MEDS ORDERED: fentaNYL CITR 100 MCG/2 ML AMP ONE (12:28)
[2019-05-03] MEDS ORDERED: LIDOCAINE/SOD BICARB 8.4% SYR ID ONE (13:30)
[2019-05-03] MEDS ORDERED: ceFAZolin(*) 2GM/D5W 50ML 50 ML IVPB ONE (13:30)
[2019-05-03] MEDS ORDERED: MIDAZOLAM 2 MG/2 ML VIAL IVP PRN (13:30)
[2019-05-03] MEDS ORDERED: NORMOSOL R SOLN(*) 1000 ML BAG 1,000 ML IV PRN (13:30)
[2019-05-03] MEDS ORDERED: CIPR-344 PO (13:41)
[2019-05-03] MEDS ORDERED: PHEN200T32 PO (13:42)
[2019-05-03] MEDS ORDERED: WATER FOR IRRIG,STERILE 3000ML IR ONE (14:08)
--- NOTE | 2019-05-04 22:22 | OPERATIVE REPORT 1 ---
EVENT DATE: May 03, 2019 SURGEON: Michael Hensley MD ANESTHESIOLOGIST: Martínez Ledesma MD ANESTHESIA: General anesthetic. PREOPERATIVE DIAGNOSIS Benign prostatic hypertrophy with lower urinary tract symptoms including urgency and frequency. POSTOPERATIVE DIAGNOSIS Benign prostatic hypertrophy with lower urinary tract symptoms including urgency and frequency. PROCEDURE PERFORMED 1. Cystoscopy. 2. UroLift prostatic urethral lift procedure with four implants. ESTIMATED BLOOD LOSS Minimal. INTRAVENOUS FLUIDS Crystalloids. DRAINS None. COMPLICATIONS None. CONDITION Patient taken to recovery room awake, in stable condition. STATEMENT OF MEDICAL NECESSITY Patient is an 83-year-old white male with a long history of BPH, who is currently on maximum medical therapy with Flomax, Proscar, and anticholinergics. His workup has included a cystoscopic exam, which revealed a 2+ trabeculated bladder and approximately a 300 cc maximum volume. Ultrasound revealed a 28 cc volume prostate with a small intravesical prostatic protrusion of approximately 5 to 6 mm. His PSA was 0.2. He had a flow rate of 13 with an AUA of 6 and a postvoid of 42 mL. Urodynamics were performed, which did show some uninhibited contractions with a decreased capacity of approximately 250 mL. His flow rate after the procedure was slow, but the pressure component was not interpretable secondary to transducer malposition. Given these findings without significant improvement on maximum medical therapy, the patient desires the least invasive procedure in an attempt to improve his symptoms. UroLift was discussed, and both he and his were interested in pursuing. He understands that he may need to continue on an anticholinergic following the procedure, but hopefully his symptoms will be significantly improved over time. Patient is now being brought to the operating room for planned cystoscopy with UroLift procedure. DESCRIPTION OF PROCEDURE PERFORMED The patient was brought to the operating room after general anesthetic was obtained. He was placed in the dorsal lithotomy position and prepped and draped in the usual sterile manner. Anesthetic cystoscopy was performed with the 20- [place] sheath and zero-degree lens with the visual obturator. This was advanced into patient's urethra. He had a normal pendulous, bulbar, and membranous urethra. His prostatic urethra revealed obstructing lateral lobes. Upon entering his bladder, he was 2+ trabeculated without other lesions. At this point, the cystoscopic sheath was left in place and the visual obturator removed. The UroLift delivery device was then introduced. The delivery device was turned to the patient's left sidewall in the bladder and then advanced down the prostatic urethra to approximately 1.5 cm distal to the bladder neck. It was then positioned on the anterior one third of the prostatic urethra and angled in approximately the 2 to 3 o'clock position. The lateral lobe was compressed by laterally angling the device at approximately 20 degrees. After position was confirmed, the needle safety lock was released, and then the blue trigger was pressed to deploy the needle containing the implant through the prostate. After this was done, keeping the device in place, the es[place] trigger lever was pressed to allow the needle to be retracted, thereby delivering the capsular tab to the outside surface of the prostate. The implant was then tensioned to assure capsular seating and removal of the slack monofilament. The device was then angled slightly back to the midline and advanced slowly proximally for approximately 3 mm until the white line could be seen on the monofilament in the keyhole. The needle was kept in the center of the keyhole and positioned closest to the cystoscopic view side. At this point, the urethral release button was pressed to affix the urethral endpiece to the monofilament and to cut the excess suture, thereby tailoring the sides of the implant for this location. After this was done, the device was advanced back into the bladder. This device was removed, and a new UroLift delivery device was advanced into the cystoscopic sheath. At this point, the same procedure was performed on the patient's right side, and then two additional implants were delivered just proximal to the verumontanum on the left and one on the right side using the same technique. At this point, the delivery device was removed and the visual obturator replaced. Final cystoscopic exam was performed. It showed good location of the implants and the presence of a continuous anterior channel with irrigation flow turned off. At this point, the patient's bladder was left full of 150 to 200 mL of irrigation fluid to aid in a voiding trial post procedure. The scope was removed. The patient was awakened in the operating room and taken to the recovery area in stable condition. PLAN The plan will be to have the patient do a voiding trial. If he is successful, will plan to see him in the Urology Clinic in two weeks. He is to continue his Flomax and Proscar and hold his Ditropan. We are also giving him a prescription for Cipro for three days and Pyridium as needed. MTDD
== END 2019-05-03 14:30 | disposition home or self-care (01) ==
LOC: OR 01:20
PROVIDERS: ATTEND Urology
DX: N40.1 Benign prostatic hyperplasia with lower urinary tract symptoms (principal); I10 Essential (primary) hypertension; I48.2 Chronic atrial fibrillation; E78.00 Pure hypercholesterolemia, unspecified
CPT/HCPCS: 36415; 52441; 52442; 81001; 85025; 85610; 85730; 87088; J1100; J2250; J2405; J2704; J3010; L8699; 82040; 82247; 82310; 82374; 82435; 82565; 82947; 84075; 84132; 84155; 84295; 84450; 84460; 84520; J0690